=== PATIENT | male | born 1985 | race Hispanic/Latino ===

== ENCOUNTER 2019-09-12 16:21 | Emergency (ER) | payer SELFPAY ==
[2019-09-12 16:29] VITALS: BP 121/79
--- NOTE | 2019-09-12 17:56 | Event Note ---
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 Further treatment and workup at subsequent clinical providers discretion. Patient/guardian urged not to elope from the ED as their condition may be serious if not clinically assessed and managed. Initial orders include: Labs
[2019-09-12 18:11] LABS: Basophils % (Auto) 0.6 % (0.0-1.8); Eosinophils # (Auto) 0.2 K/mm3 (0.0-0.4); Eosinophils % (Auto) 2.9 % (0.0-4.3); Hematocrit 43.5 % (35.5-45.6); Hemoglobin 14.7 gm/dl (11.8-15.2); Lymphocytes # (Auto) 1.7 K/mm3 (1.2-5.4); Lymphocytes % (Auto) 28.2 % (13.4-35.0); Mean Corpuscular HGB Conc 34 % (32-34); Mean Corpuscular Volume 91 fl (84-94); Monocytes # (Auto) 0.6 K/mm3 (0.0-0.8); Monocytes % (Auto) 10.8 % (0.0-7.3); Platelet Count 259 K/mm3 (140-440); Red Blood Count 4.76 M/mm3 (3.65-5.03); Red Cell Distribution Width 13.7 % (13.2-15.2)
[2019-09-12 18:26] LABS: Alanine Aminotransferase 26 units/L (7-56); Albumin 4.6 g/dL (3.9-5); Blood Urea Nitrogen 16 mg/dL (9-20); Calcium 9.5 mg/dL (8.4-10.2); Hemolysis Index 12
[2019-09-12 18:30] LABS: BUN/Creatinine Ratio 23; Bilirubin,Direct < 0.2 mg/dL (0-0.2)
[2019-09-12 18:30] LABS: Bilirubin,Urine NEG (Negative); Blood,Urine NEG (Negative); Color,Urine Yellow (Yellow); Mucus,Urine FEW /HPF; Protein,Urine <15 mg/dL mg/dL (Negative)
[2019-09-12 22:32] LABS: Amphetamine Screen,Urine PRESUMPTIVE NEGATIVE; Benzodiazepines Screen,Urine PRESUMPTIVE NEGATIVE; Cannabinoid Screen,Urine PRESUMPTIVE NEGATIVE; Cocaine Screen,Urine PRESUMPTIVE NEGATIVE; Methadone Screen,Urine PRESUMPTIVE NEGATIVE; Opiate Screen,Urine PRESUMPTIVE NEGATIVE
== END 2019-09-12 19:00 | disposition left against medical advice (07) ==
LOC: ED 16:21
DX: R79.89 Other specified abnormal findings of blood chemistry (principal); Z53.21 Procedure and treatment not carried out due to patient leaving prior to being seen by health care provider
CPT/HCPCS: 36415; 80048; 80076; 80307; 81001; 85025